=== PATIENT | female | born 1965 | race American Indian/Alaskan Native ===

== ENCOUNTER 2018-07-10 22:35 | Emergency (ER) | payer SELFPAY ==
[2018-07-10 22:49] VITALS: BP 129/75
[2018-07-10] MEDS ORDERED: TYLENOL PO ONE (22:49)
[2018-07-10] MEDS ORDERED: TYLENOL ONE (22:52)
[2018-07-11] MEDS ORDERED: TORADOL IM ONE (00:11)
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
== END 2018-07-11 02:52 | disposition home or self-care (01) ==
LOC: ED 22:35
DX: S39.012A Strain of muscle, fascia and tendon of lower back, initial encounter (principal); M50.30 Other cervical disc degeneration, unspecified cervical region; I10 Essential (primary) hypertension; K21.9 Gastro-esophageal reflux disease without esophagitis; V49.49XA Driver injured in collision with other motor vehicles in traffic accident, initial encounter; Y93.89 Activity, other specified; Y92.89 Other specified places as the place of occurrence of the external cause; Y99.8 Other external cause status
CPT/HCPCS: 72040; 72100; 96372; 99283; J1885

== ENCOUNTER 2018-11-04 09:49 | Outpatient (CLI) | payer OTHER ==
--- NOTE | 2018-11-04 15:18 | XRay Report ---
LUMBOSACRAL SPINE, 3 VIEWS INDICATION: CHRONIC BACK PAIN. COMPARISON: None. IMPRESSION: Normal alignment. The disc spaces are normal height. Mild diffuse facet arthropathy is identified. No acute osseous or soft tissue abnormality. Signer Name: Moshe Powers Jr, MD Signed: 11/04/2018 3:14 PM Workstation Name: [id number]
== END 2018-11-04 09:50 | disposition home or self-care (01) ==
LOC: XRAY 09:49
PROVIDERS: ATTEND Internal Medicine
DX: Z02.71 Encounter for disability determination (principal); M46.87 Other specified inflammatory spondylopathies, lumbosacral region; I10 Essential (primary) hypertension; K21.9 Gastro-esophageal reflux disease without esophagitis
CPT/HCPCS: 72100

== ENCOUNTER 2020-01-19 18:42 | Emergency (ER) | payer OTHER ==
[2020-01-19] MEDS ORDERED: fentaNYL 100 MCG/2 ML INJ IV ONE ×2 (19:54→23:00)
[2020-01-19] MEDS ORDERED: ONDANSETRON 4 MG/2 ML INJ IV ONE (19:54)
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
[2020-01-19 20:37] LABS: Basophils % (Auto) 0.5 % (0.0-1.8); Eosinophils # (Auto) 0.1 K/mm3 (0.0-0.4); Eosinophils % (Auto) 1.1 % (0.0-4.3); Hematocrit 35.5 % (30.3-42.9); Hemoglobin 11.7 gm/dl (10.1-14.3); Lymphocytes % (Auto) 33.1 % (13.4-35.0); Mean Corpuscular HGB Conc 33 % (30-34); Mean Corpuscular Volume 87 fl (79-97); Monocytes # (Auto) 0.3 K/mm3 (0.0-0.8); Monocytes % (Auto) 5.4 % (0.0-7.3); Platelet Count 350 K/mm3 (140-440); Red Blood Count 4.07 M/mm3 (3.65-5.03); Red Cell Distribution Width 15.2 % (13.2-15.2)
[2020-01-19 20:44] LABS: INR 0.89 (0.87-1.13)
[2020-01-19 20:45] LABS: Partial Thromboplastin Time 30.2 Sec. (24.2-36.6)
[2020-01-19 20:51] LABS: Alanine Aminotransferase 13 units/L (7-56); Albumin 3.9 g/dL (3.9-5); Blood Urea Nitrogen 12 mg/dL (7-17); Hemolysis Index 13
[2020-01-19 20:54] LABS: BUN/Creatinine Ratio 24
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
--- NOTE | 2020-01-19 22:22 | Cat Scan Report ---
CT ABDOMEN AND PELVIS WITH CONTRAST INDICATION / CLINICAL INFORMATION: Post-M.V.C. now with L.U.Q. and R.U.Q. abdominal pain. TECHNIQUE: Axial CT images were obtained through the abdomen and pelvis after IV contrast. All CT scans at this location are performed using CT dose reduction for ALARA by means of automated exposure control. COMPARISON: None available. FINDINGS: LOWER CHEST: No significant abnormality. LIVER: No significant abnormality. GALLBLADDER: No significant abnormality. BILE DUCTS: Minimally dilated common bile duct measures 8 mm. PANCREAS: No significant abnormality. SPLEEN: No significant abnormality. ADRENALS: No significant abnormality. RIGHT KIDNEY / URETER: Punctate right nonobstructive pelvicalyceal stone. No hydronephrosis. LEFT KIDNEY / URETER: Small nonobstructive left calcified renal stones in the pelvicalyceal system. N o hydronephrosis. STOMACH / SMALL BOWEL: Large hiatal hernia. COLON: No significant abnormality. APPENDIX: No significant abnormality. PERITONEUM: No free fluid. No free air. No fluid collection. LYMPH NODES: No significant adenopathy. AORTA / ARTERIES: No significant abnormality. IVC / VEINS: No significant abnormality. URINARY BLADDER: No significant abnormality. REPRODUCTIVE ORGANS: Physiologic changes are noted of the uterus with endometrial fluid. ADDITIONAL FINDINGS: Fat-containing midline ventral abdominal wall hernia with a 2.8 cm fascial defec t. SKELETAL SYSTEM: Multilevel degenerative changes are noted of the spine. No acute fractures. IMPRESSION: 1. No acute traumatic injury to the abdomen or pelvis. 2. Large hiatal hernia. 3. Fat-containing midline ventral abdominal wall hernia. 4. Nonobstructive bilateral pelvicalyceal renal stones. Signer Name: Ancelmo Dupree MD Signed: 01/19/2020 10:18 PM Workstation Name: [id number]
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
[2020-01-20 00:03] VITALS: BP 142/88
== END 2020-01-20 00:03 | disposition home or self-care (01) ==
LOC: ED 18:42
DX: S09.90XA Unspecified injury of head, initial encounter (principal); S16.1XXA Strain of muscle, fascia and tendon at neck level, initial encounter; S39.012A Strain of muscle, fascia and tendon of lower back, initial encounter; S40.012A Contusion of left shoulder, initial encounter; E04.9 Nontoxic goiter, unspecified; K44.9 Diaphragmatic hernia without obstruction or gangrene; K43.9 Ventral hernia without obstruction or gangrene; I10 Essential (primary) hypertension; K21.9 Gastro-esophageal reflux disease without esophagitis; J45.909 Unspecified asthma, uncomplicated; Z87.442 Personal history of urinary calculi; Z98.890 Other specified postprocedural states; Z79.1 Long term (current) use of non-steroidal anti-inflammatories (NSAID); Z79.899 Other long term (current) drug therapy; V49.49XA Driver injured in collision with other motor vehicles in traffic accident, initial encounter; Y93.89 Activity, other specified; Y92.410 Unspecified street and highway as the place of occurrence of the external cause; Y99.8 Other external cause status
CPT/HCPCS: 36415; 70450; 70486; 72100; 72125; 73030; 73502; 73590; 74177; 80053; 85025; 85610; 85730; 86850; 86900; 86901; 96374; 96375; 96376; 99284; J2405; J3010; Q9967

== ENCOUNTER 2020-06-05 11:07 | Emergency (ER) | payer SELFPAY ==
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
[2020-06-05 12:44] LABS: Basophils % (Auto) 0.5 % (0.0-1.8); Eosinophils % (Auto) 0.6 % (0.0-4.3); Hematocrit 36.9 % (30.3-42.9); Hemoglobin 12.3 gm/dl (10.1-14.3); Lymphocytes # (Auto) 1.4 K/mm3 (1.2-5.4); Lymphocytes % (Auto) 23.5 % (13.4-35.0); Mean Corpuscular HGB Conc 33 % (30-34); Mean Corpuscular Volume 87 fl (79-97); Monocytes # (Auto) 0.3 K/mm3 (0.0-0.8); Monocytes % (Auto) 5.1 % (0.0-7.3); Platelet Count 329 K/mm3 (140-440); Red Blood Count 4.24 M/mm3 (3.65-5.03); Red Cell Distribution Width 14.4 % (13.2-15.2)
[2020-06-05 13:06] LABS: Alanine Aminotransferase 11 units/L (7-56); Albumin 4.3 g/dL (3.9-5); Blood Urea Nitrogen 10 mg/dL (7-17); Calcium 9.5 mg/dL (8.4-10.2); Hemolysis Index 3
[2020-06-05 13:09] LABS: BUN/Creatinine Ratio 17
[2020-06-05 15:19] LABS: Bilirubin,Urine NEG (Negative); Blood,Urine MOD (Negative); Color,Urine Yellow (Yellow); Mucus,Urine 1+ /HPF; Urobilinogen,Urine < 2.0 mg/dL (<2.0)
[2020-06-05] MEDS ORDERED: ONDANSETRON 4 MG/2 ML INJ IV ONE (17:24)
[2020-06-05] MEDS ORDERED: MORPHINE 4 MG/1 ML INJ IV ONE (17:24)
--- NOTE | 2020-06-05 17:42 | Emergency Department Report ---
ED General Adult HPI - General Chief complaint: Abdominal Pain Stated complaint: ABD PAINS Time Seen by Provider: 06/05/20 11:59 Source: patient Mode of arrival: Ambulatory Limitations: No Limitations - History of Present Illness Initial comments: The patient presents to the emergency department the chief complaint of abdominal pain that started at 7 AM this morning. Patient states that she also has had nausea, vomiting, diarrhea. She describes the pain as sharp in nature and states that she has had multiple episodes of diarrhea. During her last diarrhea episode there was small amount of blood in the stool. Patient dates she has a history of 2 abdominal hernias and kidney stones as well. She denies any chest pain, shortness breath, or headache. -: Sudden Location: abdomen Radiation: non-radiation Severity scale (0 -10): 7 Quality: sharp Consistency: constant Improves with: none Worsens with: none Associated Symptoms: denies other symptoms Treatments Prior to Arrival: none - Related Data Previous Rx's Medication Instructions Recorded Last Taken Type Cyclobenzaprine [Flexeril] 10 mg PO TID PRN #30 tablet 07/11/18 Unknown Rx Menthol/Camphor [[place] 1 applicatio TP QID PRN #1 tube 07/11/18 Unknown Rx Ointment] Naproxen [Naprosyn] 500 mg PO BID PRN #30 tablet 07/11/18 Unknown Rx Cyclobenzaprine [Flexeril] 10 mg PO TID PRN #10 tablet 01/19/20 Unknown Rx HYDROcodone/APAP 5-325 [[place] 1 - 2 each PO Q6HR PRN #10 tablet 01/19/20 Unknown Rx 5/325] Ibuprofen [Motrin 800 MG tab] 800 mg PO Q8HR PRN #20 tablet 01/19/20 Unknown Rx HYDROcodone/APAP 5-325 [[place] 1 each PO Q6HR PRN #12 tablet 06/05/20 Unknown Rx 5/325] Ondansetron [Zofran Odt] 4 mg PO Q4HR PRN #20 tab.rapdis 06/05/20 Unknown Rx Allergies Allergy/AdvReac Type Severity Reaction Status Date / Time No Known Allergies Allergy Verified 07/10/18 22:52 ED Review of Systems ROS: Stated complaint: ABD PAINS Other details as noted in HPI Comment: All other systems reviewed and negative Constitutional: denies: chills, fever Eyes: denies: eye pain, eye discharge, vision change ENT: denies: ear pain, throat pain Respiratory: denies: cough, shortness of breath, wheezing Cardiovascular: denies: chest pain, palpitations Endocrine: no symptoms reported Gastrointestinal: abdominal pain, nausea, vomiting, diarrhea Genitourinary: denies: urgency, dysuria, discharge Musculoskeletal: denies: back pain, joint swelling, arthralgia Skin: denies: rash, lesions Neurological: denies: headache, weakness, paresthesias Psychiatric: denies: anxiety, depression Hematological/Lymphatic: denies: easy bleeding, easy bruising ED Past Medical Hx - Past Medical History Previous Medical History?: Yes Hx Hypertension: Yes Hx GERD: Yes Hx Kidney Stones: Yes Hx Asthma: Yes - Surgical History Past Surgical History?: Yes Additional Surgical History: C-sections X2. Left ring finger hardware - Social History Smoking Status: Current Every Day Smoker Substance Use Type: None - Medications Home Medications: Home Medications Medication Instructions Recorded Confirmed Last Taken Type Cyclobenzaprine [Flexeril] 10 mg PO TID PRN #30 tablet 07/11/18 Unknown Rx Menthol/Camphor [[place] 1 applicatio TP QID PRN #1 tube 07/11/18 Unknown Rx Ointment] Naproxen [Naprosyn] 500 mg PO BID PRN #30 tablet 07/11/18 Unknown Rx Cyclobenzaprine [Flexeril] 10 mg PO TID PRN #10 tablet 01/19/20 Unknown Rx HYDROcodone/APAP 5-325 [[place] 1 - 2 each PO Q6HR PRN #10 tablet 01/19/20 Unkno wn Rx 5/325] Ibuprofen [Motrin 800 MG tab] 800 mg PO Q8HR PRN #20 tablet 01/19/20 Unknown Rx HYDROcodone/APAP 5-325 [[place] 1 each PO Q6HR PRN #12 tablet 06/05/20 Unknown Rx 5/325] Ondansetron [Zofran Odt] 4 mg PO Q4HR PRN #20 tab.rapdis 06/05/20 Unknown Rx ED Physical Exam - General Limitations: No Limitations General appearance: alert, in no apparent distress - Head Head exam: Present: atraumatic, normocephalic - Eye Eye exam: Present: normal appearance, PERRL, EOMI - ENT ENT exam: Present: mucous membranes moist - Neck Neck exam: Present: normal inspection - Respiratory Respiratory exam: Present: normal lung sounds bilaterally. Absent: respiratory distress - Cardiovascular Cardiovascular Exam: Present: regular rate, normal rhythm. Absent: systolic murmur, diastolic murmur, rubs, gallop - GI/Abdominal GI/Abdominal exam: Present: soft, tenderness (Patient has tenderness to palpation of the left lower and right lower quadrants on exam), normal bowel sounds. Absent: distended - Extremities Exam Extremities exam: Present: normal inspection - Back Exam Back exam: Present: normal inspection - Neurological Exam Neurological exam: Present: alert, oriented X3 - Psychiatric Psychiatric exam: Present: normal affect, normal mood - Skin Skin exam: Present: warm, dry, intact, normal color. Absent: rash ED Course Vital Signs 06/05/20 06/05/20 06/05/20 11:49 17:31 18:15 Temperature 98.6 F Pulse Rate 99 H 70 70 Respiratory 18 16 11 L Rate Blood Pressure 153/96 148/91 159/92 O2 Sat by Pulse 100 98 98 Oximetry ED Medical Decision Making - Lab Data Result diagrams: 06/05/20 12:18 06/05/20 12:18 Lab Results 06/05/20 06/05/20 06/05/20 Range/Units 12:18 12:18 14:45 WBC 5.9 (4.5-11.0) K/mm3 RBC 4.24 (3.65-5.03) M/mm3 Hgb 12.3 (10.1-14.3) gm/dl Hct 36.9 (30.3-42.9) % MCV 87 (79-97) fl MCH 29 (28-32) pg MCHC 33 (30-34) % RDW 14.4 (13.2-15.2) % Plt Count 329 (140-440) K/mm3 Lymph % (Auto) 23.5 (13.4-35.0) % [place] % (Auto) 5.1 (0.0-7.3) % Eos % (Auto) 0.6 (0.0-4.3) % Baso % (Auto) 0.5 (0.0-1.8) % Lymph # (Auto) 1.4 (1.2-5.4) K/mm3 [place] # (Auto) 0.3 (0.0-0.8) K/mm3 Eos # (Auto) 0.0 (0.0-0.4) K/mm3 Baso # (Auto) 0.0 (0.0-0.1) K/mm3 Seg Neutrophils % 70.3 H (40.0-70.0) % Seg Neutrophils # 4.1 (1.8-7.7) K/mm3 Sodium 139 (137-145) mmol/L Potassium 3.6 (3.6-5.0) mmol/L Chloride 103.8 (98-107) mmol/L Carbon Dioxide 27 (22-30) mmol/L Anion Gap 12 mmol/L BUN 10 (7-17) mg/dL Creatinine 0.6 (0.6-1.2) mg/dL Estimated GFR > 60 ml/min BUN/Creatinine Ratio 17 % Glucose 96 (65-100) mg/dL Calcium 9.5 (8.4-10.2) mg/dL Total Bilirubin 0.30 (0.1-1.2) mg/dL AST 14 (5-40) units/L ALT 11 (7-56) units/L Alkaline Phosphatase 52 (35-129) units/L Total Protein 8.0 (6.3-8.2) g/dL Albumin 4.3 (3.9-5) g/dL Albumin/Globulin Ratio 1.2 % Lipase 64 H (13-60) units/L Urine Color Yellow (Yellow) Urine Turbidity Hazy (Clear) Urine pH 5.0 (5.0-7.0) Ur Specific [place] 1.023 (1.003-1.030) Urine Protein 30 mg/dl (Negative) mg/dL Urine Glucose (UA) Neg (Negative) mg/dL Urine Ketones Neg (Negative) mg/dL Urine Blood Mod (Negative) Urine Nitrite Neg (Negative) Urine Bilirubin Neg (Negative) Urine Urobilinogen < 2.0 (<2.0) mg/dL Ur Leukocyte Esterase Neg (Negative) Urine WBC (Auto) 7.0 H (0.0-6.0) /HPF Urine RBC (Auto) 5.0 (0.0-6.0) /HPF U Epithel Cells (Auto) 6.0 (0-13.0) /HPF Urine Mucus 1+ /HPF - Radiology Data Radiology results: report reviewed - Medical Decision Making Discussed results of the CT scan with the patient including findings of renal stones but no stones of the ureter Patient had relief of symptoms with pain medication given in ED Critical care attestation.: If time is entered above; I have spent that time in minutes in the direct care of this critically ill patient, excluding procedure time. ED Disposition Clinical Impression: Abdominal pain, Hiatal hernia, Bilateral nephrolithiasis Disposition: TO HOME OR SELFCARE Is pt being admited?: No Does the pt Need Aspirin: No Condition: Stable Instructions: Abdominal Pain, Adult, Renal Colic, [id number], Abdominal Pain (ED) Additional Instructions: Return if worse Prescriptions: HYDROcodone/APAP 5-325 [[place] 5/325] 1 each PO Q6HR PRN #12 tablet PRN Reason: Pain Ondansetron [Zofran Odt] 4 mg PO Q4HR PRN #20 tab.rapdis PRN Reason: Nausea Referrals: PRIMARY CAREMD [Primary Care Provider] - 3-5 Days ANTONINO CONNELLY MD [Staff Physician] - 3-5 Days Time of Disposition: 19:30
--- NOTE | 2020-06-05 18:54 | Cat Scan Report ---
CT ABDOMEN AND PELVIS WITH CONTRAST INDICATION / CLINICAL INFORMATION: MAIN. TECHNIQUE: Axial CT images were obtained through the abdomen and pelvis after 100 cc of Omnipaque [address] scans at this location are performed using CT dose reduction for ALARA by means of automat ed exposure control. COMPARISON: 01/19/2020 FINDINGS: LOWER CHEST: There is a hiatal hernia. LIVER: No significant abnormality. GALLBLADDER: No significant abnormality. BILE DUCTS: No significant abnormality. PANCREAS: No significant abnormality. SPLEEN: No significant abnormality. ADRENALS: No significant abnormality. RIGHT KIDNEY and URETER: Small nonobstructing calyceal stone appears unchanged. LEFT KIDNEY and URETER: Small nonobstructing calyceal stone appears unchanged. STOMACH and SMALL BOWEL: No significant abnormality. COLON: No significant abnormality. APPENDIX: No significant abnormality. PERITONEUM: No free fluid. No free air. No fluid collection. LYMPH NODES: No significant adenopathy. AORTA and ARTERIES: No significant abnormality. IVC and VEINS: No significant abnormality. URINARY BLADDER: No significant abnormality. REPRODUCTIVE ORGANS: No significant abnormality. ADDITIONAL FINDINGS: None. SKELETAL SYSTEM: No acute abnormality. IMPRESSION: 1. Small nonobstructing calyceal stones appear unchanged. There is no hydronephrosis. There are no ur eteral calculi. 2. There is no obstruction, inflammation, or free air. The appendix is unremarkable. No acute abnorma lity is seen in the abdomen or pelvis. 3. There is a hiatal hernia which appears unchanged. Fat-containing ventral hernia below the umbilicu s appears unchanged. Signer Name: Darrel Bernard MD Signed: 06/05/2020 6:49 PM Workstation Name: [id number] ([id number]
[2020-06-05 20:14] VITALS: BP 148/91
== END 2020-06-05 20:00 | disposition home or self-care (01) ==
LOC: ED 11:07
DX: N20.0 Calculus of kidney (principal); K44.9 Diaphragmatic hernia without obstruction or gangrene; R10.9 Unspecified abdominal pain; I10 Essential (primary) hypertension; K21.9 Gastro-esophageal reflux disease without esophagitis; J45.909 Unspecified asthma, uncomplicated; F17.200 Nicotine dependence, unspecified, uncomplicated; Z98.890 Other specified postprocedural states; Z79.899 Other long term (current) drug therapy
CPT/HCPCS: 36415; 74177; 80053; 81001; 83690; 85025; 96374; 96375; 99284; J2270; J2405; Q9967

== ENCOUNTER 2021-09-19 17:29 | Emergency (ER) | payer SELFPAY ==
[2021-09-19 17:33] VITALS: BP 161/110
== END 2021-09-19 19:30 | disposition left against medical advice (07) ==
LOC: ED 17:29
DX: R42 Dizziness and giddiness (principal); Z53.21 Procedure and treatment not carried out due to patient leaving prior to being seen by health care provider; V89.2XXA Person injured in unspecified motor-vehicle accident, traffic, initial encounter; Y93.89 Activity, other specified; Y92.89 Other specified places as the place of occurrence of the external cause; Y99.8 Other external cause status